=== PATIENT | female | born 2005 | race Caucasian/White ===

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

== ENCOUNTER 2025-03-14 14:35 | Emergency (ER) | payer OTHER ==
[~2025-03-14] VITALS: Ht 154.9 cm; Wt 49.0 kg
[~2025-03-14 14:35] MED LIST changes: +ACET-2080 PO; +IBUP-1554 PO; +PROM-223 PO; +UBRO100T PO
[2025-03-14 14:56] VITALS: BP 113/75; PULSE 80; RESP 18; TEMP 98.1; O2SAT 99
[2025-03-14] MEDS: ACETAMINOPHEN 325 MG TABLET PO ONE (15:55)
== END 2025-03-14 16:06 | disposition home or self-care (01) ==
LOC: EMS 14:35
DX: S06.0XAA Concussion with loss of consciousness status unknown, initial encounter (principal); G43.909 Migraine, unspecified, not intractable, without status migrainosus; Z79.899 Other long term (current) drug therapy; W22.8XXA Striking against or struck by other objects, initial encounter; Y93.89 Activity, other specified; Y92.89 Other specified places as the place of occurrence of the external cause; Y99.8 Other external cause status
CPT/HCPCS: 99282; Z7502; Z7610